=== PATIENT | male | born 1950 | race Caucasian/White ===

== ENCOUNTER 2018-12-21 20:42 | Emergency (ER) | payer OTHER ==
[2018-12-21] MEDS ORDERED: ASPIRIN 81 MG TABLET, CHEWABLE PO ONE (21:01)
--- NOTE | 2018-12-21 21:09 | ER Document Report ---
ED Medical Screen (RME) - General Chief Complaint: Chest Pain Stated Complaint: SHORTNESS OF BREATHE, CHEST PAIN, WEAKNESS Time Seen by Provider: 12/21/18 21:01 Primary Care Provider: AARON SMITH MD [Primary Care Provider] - Follow up as needed Mode of Arrival: Ambulatory Information source: Patient Notes: 68-year-old male with history of COPD and high blood pressure presents emergency department feeling weak shaky. He denies fever vomiting diarrhea but reports decreased appetite has not had a decent meal in over a week. Patient reports chest pressure feels like a band around his chest. Does smoke had a cigarette today but that was the first 1 in a week. No home oxygen. Reports when he stands up he gets extremely short of breath. Standing up wears him out. Respiratory rate even unlabored while sitting in the wheelchair, patient is answering questions appropriately. I have greeted and performed a rapid initial assessment of this patient. A co mprehensive ED assessment and evaluation of the patient, analysis of test results and completion of the medical decision making process will be conducted by additional ED providers. Dictation of this chart was performed using voice recognition software; therefore, there may be some unintended grammatical errors. TRAVEL OUTSIDE OF THE [place] IN LAST 30 DAYS: No Physical Exam - Vital signs Vitals: Temp Pulse Resp BP Pulse Ox 98.1 F 105 H 16 153/88 H 100 12/21/18 20:55 12/21/18 20:55 12/21/18 20:55 12/21/18 20:55 12/21/18 20:55 Course - Vital Signs Vital signs: Temp Pulse Resp BP Pulse Ox 98.1 F 105 H 16 153/88 H 100 12/21/18 20:55 12/21/18 20:55 12/21/18 20:55 12/21/18 20:55 12/21/18 20:55 Doctor's Discharge - Discharge Referrals: AARON SMITH MD [Primary Care Provider] - Follow up as needed
--- NOTE | 2018-12-21 22:08 | RADIOLOGY REPORT (SQ) ---
EXAM DESCRIPTION: XR CHEST 2 VIEWS COMPLETED DATE/TME: 12/21/2018 21:01 CLINICAL HISTORY: 68 years, Male, sob cp COMPARISON: 01/15/2016 chest NUMBER OF VIEWS: 2 TECHNIQUE: Frontal and lateral views of the chest LIMITATIONS: None. FINDINGS: The heart size is normal. Osteopenia. COPD. Lungs are hyperinflated but clear. No pneumothorax IMPRESSION: COPD. Lungs are clear copyright 2011 [employer]- All Rights Reserved
[2018-12-21 22:58] LABS: ABSOLUTE BASOPHILS # (AUTO) 0.1 10^3/uL (0.0-0.2); ABSOLUTE EOSINOPHILS # (AUTO) 0.1 10^3/uL (0.0-0.6); ABSOLUTE LYMPHOCYTES (AUTO) 1.7 10^3/uL (0.5-4.7); ABSOLUTE MONOCYTES (AUTO) 0.7 10^3/uL (0.1-1.4); ABSOLUTE NEUT (AUTO) 4.8 10^3/uL (1.7-8.2); BASOPHILS % (AUTO) 0.7 % (0-2); EOSINOPHILS % (AUTO) 1.3 % (0-6); HEMATOCRIT 49.2 % (37.9-51.0); HEMOGLOBIN 16.5 g/dL (13.5-17.0); LYMPHOCYTES % (AUTO) 22.9 % (13-45); MEAN CORPUSCULAR HEMOGLOBIN 29.3 pg (27.0-33.4); MEAN CORPUSCULAR HGB CONC 33.6 g/dL (32.0-36.0); MEAN CORPUSCULAR VOLUME 87 fl (80-97); PLATELET COUNT 331 10^3/uL (150-450); RED BLOOD COUNT 5.65 10^6/uL (4.35-5.55); SEGMENTED NEUTROPHILS % (AUTO) 65.1 % (42-78); TOTAL CELLS COUNTED % (AUTO) 100 %; WHITE BLOOD COUNT 7.4 10^3/uL (4.0-10.5)
--- NOTE | 2018-12-21 23:20 | EKG REPORT ---
SEVERITY:- ABNORMAL ECG - SINUS TACHYCARDIA BIATRIAL ABNORMALITIES BORDERLINE RIGHT AXIS DEVIATION : Confirmed by: Fiona Amezquita MD 21-Dec-2018 23:20:00
[2018-12-21 23:22] LABS: BLOOD UREA NITROGEN 14 mg/dL (7-20); CALCIUM 10.1 mg/dL (8.4-10.2); GLUCOSE 94 mg/dL (75-110)
[2018-12-21 23:23] LABS: ALBUMIN 4.7 g/dL (3.5-5.0); ALKALINE PHOSPHATASE 61 U/L (38-126); ANION GAP 10 (5-19); ASPARTATE AMINO TRANSFERASE 30 U/L (17-59); BILIRUBIN,DIRECT 0.1 mg/dL (0.0-0.4); BILIRUBIN,TOTAL 0.4 mg/dL (0.2-1.3); CARBON DIOXIDE 29 mmol/L (22-30); CHLORIDE 100 mmol/L (98-107); CREATINE KINASE 190 U/L (55-170); POTASSIUM 4.6 mmol/L (3.6-5.0); TOTAL PROTEIN 7.6 g/dL (6.3-8.2)
[2018-12-21 23:36] LABS: TROPONIN I < 0.012 ng/mL
[2018-12-22] MEDS ORDERED: METHYLPREDNISOLONE INJ 125 MG/2 ML SDV IV ONE (00:19)
[2018-12-22] MEDS ORDERED: IPRATROPIUM/ALBUTEROL 0.5-2.5 MG/3 ML AMPUL NEB ONE (00:19)
--- NOTE | 2018-12-22 00:37 | ER Document Report ---
ED General - General Chief Complaint: Shortness Of Breath Stated Complaint: SHORTNESS OF BREATHE, CHEST PAIN, WEAKNESS Time Seen by Provider: 12/21/18 21:01 Primary Care Provider: AARON SMITH MD [ACTIVE STAFF] - Follow up as needed Mode of Arrival: Ambulatory TRAVEL OUTSIDE OF THE [place] IN LAST 30 DAYS: No - HPI Notes: This is a 68-year-old gentleman with a history of COPD who presents with complaint of cough, congestion, pain across the entire chest wall for the past several days. Patient states that he was recently diagnosed with pneumonia and is finished up his antibiotics. He states that he is still coughing but not as much as before. Cough is productive of clear sputum. He states his entire chest wall hurts when he coughs. He says he feels very fatigued and short of breath also. He states he has been low in energy and has not had a full meal in about a week. He denies any fever or chills. He denies any vomiting or diarrhea. He describes his symptoms as moderate. - Related Data Allergies/Adverse Reactions: No Known Allergies Allergy (Unverified 12/22/18 00:26) Past Medical History - General Information source: Patient - Social History Smoking Status: Current Every Day Smoker Chew tobacco use (# tins/day): No Frequency of alcohol use: None Drug Abuse: Prescription drugs Family History: Hypertension Patient has suicidal ideation: No Patient has homicidal ideation: No Review of Systems - Review of Systems Constitutional: denies: Fever Cardiovascular: Chest pain Respiratory: Cough, Short of breath, Sputum, Wheezing Gastrointestinal: denies: Abdominal pain -: Yes All other systems reviewed and negative Physical Exam - Vital signs Vitals: Temp Pulse Resp BP Pulse Ox 98.1 F 105 H 16 153/88 H 100 12/21/18 20:55 12/21/18 20:55 12/21/18 20:55 12/21/18 20:55 12/21/18 20:55 - General General appearance: Appears well, Alert - Respiratory Respiratory status: No respiratory distress Chest status: Tender - There is right upper chest wall tenderness to palpation. Reproducible pain with movement., Pain with cough Breath sounds: Productive cough, Rhonchi, Wheezing Chest palpation: Normal - Cardiovascular Rhythm: Regular Heart sounds: Normal auscultation Murmur: No - Abdominal Inspection: Normal Distension: No distension Bowel sounds: Normal Tenderness: Nontender Organomegaly: No organomegaly - Neurological Neuro grossly intact: Yes Cognition: Normal Orientation: AAOx4 Irvin Coma Scale Eye Opening: Spontaneous Hornbeck Coma Scale Verbal: Oriented Irvin Coma Scale Motor: Obeys Commands Hornbeck Coma Scale Total: 15 Speech: Normal Motor strength normal: LUE, RUE, LLE, RLE Sensory: Normal - Psychological Associated symptoms: Normal affect, Normal mood - Skin Skin Temperature: Warm Skin Moisture: Dry Skin Color: Normal Course - Re-evaluation Re-evalutation: 12/22/18 00:40 Differential diagnosis includes COPD exacerbation versus pneumonia versus costochondritis. There is no clinical suspicion for acute coronary syndrome with reproducible, atypical chest pain greater than 24 hours. Cannot rule out ACS with a negative troponin. EKG shows sinus tach at 104 bpm. Right axis deviation. No acute injury p attern. 12/22/18 03:06 Patient reevaluated. Patient is doing well. No wheezing. Good air movement. Labs and imaging reviewed and discussed with patient. He is stable for discharge. - Vital Signs Vital signs: Temp Pulse Resp BP Pulse Ox 98.1 F 105 H 16 158/99 H 95 12/21/18 20:55 12/21/18 20:55 12/22/18 02:01 12/22/18 02:00 12/22/18 02:01 - Laboratory Result Diagrams: 12/21/18 22:40 12/21/18 22:40 Laboratory results interpreted by me: 12/21/18 12/21/18 22:40 22:40 RBC 5.65 H Creatine Kinase 190 H Discharge - Discharge Clinical Impression: COPD with acute exacerbation Condition: Good Disposition: HOME, SELF-CARE Instructions: Chronic Obstructive Lung Disease ([facility]) Additional Instructions: Use your inhaler as needed for wheezing. Prescriptions: Benzonatate [Tessalon Perles 100 mg Capsule] 100 mg PO Q8HP PRN #40 capsule PRN Reason: Prednisone [Deltasone 20 mg Tablet] 3 tab PO DAILY 5 Days #15 tablet Referrals: AARON SMITH MD [ACTIVE STAFF] - Follow up in 3-5 days
[2018-12-22] MEDS ORDERED: NORMAL SALINE 250 ML IV ONE (01:14)
[2018-12-22 03:15] VITALS: BP 138/86
== END 2018-12-22 03:16 | disposition home or self-care (01) ==
LOC: ER 20:42
DX: J44.1 Chronic obstructive pulmonary disease with (acute) exacerbation (principal); R06.02 Shortness of breath; R05 Cough; R09.81 Nasal congestion; R07.89 Other chest pain; F17.200 Nicotine dependence, unspecified, uncomplicated
CPT/HCPCS: 93005; 36415; 82553; 82550; 85025; 80053; 84484; 71046; 93010; J2930; J7050; J7620

== ENCOUNTER → 2019-01-10 | Outpatient (CLI) | payer OTHER ==
[2019-01-10 16:17] LABS: ARTERIAL BLOOD BASE EXCESS -0.4 mmol/L; ARTERIAL BLOOD H2CO3 0.91 mmol/L (1.05-1.35); ARTERIAL BLOOD HCO3 21.9 mmol/L (20-24); ARTERIAL BLOOD O2 SATURATION 97.3 % (94-98); ARTERIAL BLOOD PCO2 30.3 mmHg (35-45); ARTERIAL BLOOD PH 7.48 (7.35-7.45); ARTERIAL BLOOD PO2 87.2 mmHg (80-100); ARTERIAL BLOOD TOTAL CO2 22.8 mmol/L (23-27)
[2019-01-10 16:20] LABS: ARTERIAL BLOOD FIO2 ROOM AIR
== END ==
LOC: OD 14:27
PROVIDERS: ATTEND Obstetrics & Gynecology
DX: J44.9 Chronic obstructive pulmonary disease, unspecified (principal); R06.02 Shortness of breath; R53.83 Other fatigue; Z20.7 Contact with and (suspected) exposure to pediculosis, acariasis and other infestations
CPT/HCPCS: 36600; 82803; 86617; 86618

== ENCOUNTER → 2019-05-02 | Outpatient (CLI) | payer OTHER ==
--- NOTE | 2019-05-02 15:03 | RADIOLOGY REPORT (SQ) ---
EXAM DESCRIPTION: U/S RETROPERITON (RENAL/AORTA) COMPLETED DATE/TIME: 05/02/2019 1:56 pm REASON FOR STUDY: KIDNEY CYSTS, BLADDER STONE COMPARISON: None. TECHNIQUE: Dynamic and static grayscale images acquired of the kidneys and bladder and recorded on P ACS. Additional selected color Doppler and spectral images recorded. LIMITATIONS: None. FINDINGS: RIGHT KIDNEY: Normal size, 11.4 cm. Increased echogenicity. No solid masses. Cysts are p resent. The largest measures 2.2 cm. No hydronephrosis. Multiple calcifications are seen. The lar gest measures 10 mm. LEFT KIDNEY: Normal size, 11.3 cm. Increased echogenicity. No solid masses. Cysts are present. Th e largest measures 2 cm. No hydronephrosis. Calcifications are present. The largest measures 1.3 c m. BLADDER: Ureteral jets are seen. There are some echogenic foci in the bladder. The largest measures 2 cm. There is a small amount of free floating debris. OTHER FINDINGS: Prostate gland is enlarged. There is nodular protrusion into the base of the bladder . IMPRESSION: 1. There are bilateral intrarenal calculi with no ureteral stone or obstruction. 2. There is increased echogenicity in the kidneys that may suggest medical renal disease. 3. Calcifications are suggested in the bladder with a 2 cm bladder stone. 4. Prostatic enlargement with nodular protrusion into the base of the bladder. TECHNICAL DOCUMENTATION: JOB ID: [id number] [employer]- All Rights Reserved Reading location - IP/workstation name: [email or web address]
== END ==
LOC: RAD 12:51
PROVIDERS: ATTEND Clinical Nurse Specialist Adult Health
DX: N28.1 Cyst of kidney, acquired (principal)
CPT/HCPCS: 76770